=== PATIENT | female | born 1935 | race Caucasian/White ===

== ENCOUNTER → 2019-03-10 | Outpatient (CLI) | payer OTHER ==
[~2019-03-10] VITALS: Ht 162.6 cm; Wt 81.6 kg
[~2019-03-10] MED LIST: ACETAMINOPHEN-1 EAC1 PO; APAP/CODEINE ELI5 M1 OR; CALCIUM 600 +1 EAC2 PO; CALCIUM OYSTER500 MG PO; CLONAZEPAM 0.50.5 M1 PO; FISH OIL 1,0001 EAC5 PO; LIPITOR 20 MG T20 M1 PO; LISINOPRIL10 MG PO; LIVALO4 MG PO; METFORMIN HCL500 MG PO; MINIPRIN81 MG PO; MULTIVITAMINS PO; NAPROSYN500 MG PO; NEURONTIN 300300 M1 PO; NEURONTIN600 MG PO; NEXIUM40 MG PO; NORCO 5-325 TA1 EAC1 PO; NORVASC 5 MG TAB5 MG PO; PANTOPRAZOLE SO40 M1 PO; PRAVACHOL 20 MG20 M1 PO; PRINIVIL10 MG PO; PROTONIX40 M1 PO; VYTORIN 10-101 EACH PO; ZPAK PO
[2019-03-10 10:26] VITALS: BP 157/77
--- NOTE | 2019-03-10 10:48 | NUR ---
Pain Clinic Assessment: 1. History of Osteoarthritis: * THROUGHOUT SPINE History of Rheumatoid Arthritis: 2. Height: 5 ft. 4 in. 162.6 cm. Weight: 180.0 lb. oz. 81.648 kg. Patient's BMI: 30.9 3. Vital Signs: BP: 157/77 Pulse: 74 Resp: 16 Temp: 02 Sat: 97 ECG Mon: 4. Pain Intensity: 5 5. Fall Risk: Dizziness: Y Needs help standing or walking: N Fallen in the last 3 months: N Fall risk comments: 6. Patient on Blood Thinner: None 7. History of Hypertension: 8. Opioid Therapy greater than 6 weeks: N Opiate Contract Signed: 9. Risk Assessment Tool Provided: 10. Functional Assessment Tool: 11. Recreational Drug Use: Never Drug Type: Tobacco Use: Never Smoker Tobacco Type: Amount or Packs/day: How Many Years: Alcohol Use: No Frequency: Quant:
--- NOTE | 2019-03-24 07:47 | HPC ---
[facility] [address] PAIN MANAGEMENT CONSULTATION Name: CELESTINA NOYOLA [facility] [id number] Admission: 03/10/19 Attend Phys: Omer Harris DO Discharge: Date of : 33 Report #: [id number] THIS REPORT FOR: //name// CC: Jewel Watson DATE OF SERVICE: 03/10/2019 REFERRING PHYSICIAN: Prince Montes DO CHIEF COMPLAINT: Neck pain, midback pain and low back pain. HISTORY OF PRESENT ILLNESS: As you know, the patient is an 84-year-old female with longstanding history of various pain generators, including her neck, midback and low back. She states the pain began somewhere in 09/2018. She is unaware of any specific injury or trauma that may have worsened her symptoms. She indicates that her pain has intensified to a level that she contacted her PCP, Dr. Montes, who had her undergo imaging of the cervical spine, which showed marked central canal stenosis with complete effacement of CSF at the C5-C6 level. Due to lack of improvement with conservative options and given the significant findings on imaging, the patient was sent to our clinic to discuss the possibility of treatment for suspected cervical radiculopathy. The patient indicates pain today is continuous with transient exacerbation of symptoms. She describes the pain as shooting, throbbing, tender, numbness and tingling when describing pain, places current pain score 5/10, daily average at 5-7/10, worst pain has been at 8/10. The patient states that pain is exacerbated with "too much walking or too long sitting." She states nothing to date has improved overall pain. She has been referred to our service for her cervical spinal stenosis to discuss options for treatment. PAST MEDICAL HISTORY: 1. Hypertension. 2. Gastroesophageal reflux disease. 3. Osteoporosis. 4. Diabetes mellitus type 2. 5. Cervical radiculopathy. 6. Dyslipidemia. PAST SURGICAL HISTORY: Hysterectomy. SOCIAL HISTORY: The patient denies tobacco, alcohol, IV or illicit drug use. She is retired, retiring nearly 35 years ago, not receiving workmen's compensation, nor is she trying to obtain disability benefits. She is not in [address] [address] PAIN MANAGEMENT CONSULTATION Name: CELESTINA NOYOLA [facility] #: [facility] [id number] Admission: 03/10/19 Attend Phys: Omer Harris DO Discharge: Date of : 33 Report #: [id number] litigation in regards to pain. ALLERGIES: NIACIN AND TRAMADOL. CURRENT MEDICATIONS: Calcium carbonate 1 tablet per day, multivitamin 1 tab per day, metformin 500 mg twice a day, atorvastatin 20 mg once a day, amlodipine 5 mg per day, omeprazole 40 mg per day. Pain impact score 10/60 indicating mild interference of daily activities secondary to pain. IMAGING: MRI cervical spine obtained on 02/20/2019 shows C1-C2 unremarkable; C2-C3 unremarkable; C3-C4, mild osteophyte disk bulge and facet arthropathy pain. There is ligamentum flavum hypertrophy causing effacement of the ventral thecal sac, mild central canal stenosis, left greater than right foraminal narrowing. C4-C5, broad-based disk bulge, osteophyte complex, bilateral facet hypertrophy, ligamentum flavum hypertrophy causing CSF effacement, cord flattening, moderate central canal stenosis. C5-C6, disk osteophyte complex with a central protrusion, facet hypertrophy, ligamentum flavum hypertrophy causing marked central canal stenosis with complete CSF effacement, spinal cord compression and bilateral foraminal narrowing. C6-C7 and C7-T1, relatively unremarkable. PQRS: The patient has known arthritic changes of the cervical spine, with a history of rheumatoid arthritis. She is placing pain intensity at 5/10. She is not a fall risk, has not had a fall in the last 3 months. She is not on blood thinners. She is currently treated for hypertension. She is not on any opioid. She has a low opioid addiction potential. Pain impact score 10 of 60, mild interference with daily activities secondary to pain. PHYSICAL EXAMINATION: VITAL SIGNS: Blood pressure 157/77, pulse 74, respiratory rate 16 and unlabored. The patient is 97% on room air. Height 5 feet 4 inches tall, weight 180 pounds, BMI calculated 30.9. GENERAL: Well-developed, well-nourished, well-hydrated 84-year-old female, appearing stated age, rating pain score today 5/10. HEENT: Normocephalic, atraumatic. Pupils equal, round, reactive to light. Extraocular muscles are intact. Sclerae nonicteric without injection. NEUROLOGIC: Cranial nerves 2 through 12 grossly intact. Speech fluent. The patient deemed a good historian. LUNGS: Clear, no wheeze, rhonchi or rales. CARDIOVASCULAR: Regular. No appreciable gallop, no rub. ABDOMEN: Soft, nontender, mildly obese, normoactive bowel sounds. EXTREMITIES: Show no clubbing, no cyanosis, no edema. MUSCULOSKELETAL: The patient has an upper extremity strength equal and symmetrical, deconditioned bilaterally, but able to generate 5/5 strength. She is intact to light touch from C5-T1 dermatomes. Deep tendon reflexes are symmetrical, but diminished bilaterally, both in the triceps, biceps and [facility] [address] [place] [address] PAIN MANAGEMENT CONSULTATION Name: CELESTINA NOYOLA [facility]: [facility] [id number] Admission: 03/10/19 Attend Phys: Omer Harris DO Discharge: Date of : 33 Report #: [id number] brachioradialis in the left and right upper extremities. Spurling's test is positive. Distraction of the cervical spine does improve pain mildly. Cervical provocation testing is met with [id number] restriction of motion and pain generated both in the left and right rotational component. ASSESSMENT: 1. Cervical radiculopathy. 2. Severe central canal stenosis of the cervical spine. 3. Neuroforaminal stenosis of the cervical spine. 4. Cervical facet arthropathy. 5. Chronic intractable pain. PLAN: 1. Based on today's physical exam and history the patient has provided, the description the patient uses in regards to pain as well as the descriptors the patient uses in regards to symptoms and the findings of her recent MRI, which shows severe near-critical spinal stenosis at the C5-C6 level, likely source of the patient's pain is cervical radiculopathy. We discussed with the patient treatment options for cervical radiculopathy today. The following was discussed with the patient. We discussed physical therapy, stretching exercises and traction techniques to assist in cervical pain. We discussed medication management utilizing neuropathic pain medications, nonsteroidal anti-inflammatories and a low-dose opioid for pain control. We discussed cervical epidural injections under fluoroscopic guidance to address radicular components directly. We also discussed surgical decompression, which may ultimately be necessary. After reviewing the risks and benefits of all the proposed treatment options, the patient chose to begin with conservative medication management. We reviewed the fact that opiate medications are being used to provide analgesia adequate to support activities of daily living, not attempting to achieve a specific pain score on the 0-10 Visual Analog Scale. The current opiate medications are providing sufficient analgesia to allow the patient to participate in activities of daily living. The patient is not exhibiting any aberrant behavior suggestive of drug diversion. The patient is not having any adverse reactions to medications. The patient is not suffering from daytime somnolence or mental acuity changes. The patient is managing opiate-induced constipation with appropriate iyth-kik-[id number] agents and dietary considerations. The patient was counseled on concern for caution with operating a motor vehicle while using opiate medications. A physical exam was performed and the patient's functional status was evaluated. All patients with back pain were advised against the bed rest greater than 4 days and were advised to return to normal activities. Pain score assessment was noted and the treatment plan was reviewed with the patient. All current [address] [address] PAIN MANAGEMENT CONSULTATION Name: CELESTINA NOYOLA Room #: REG [facility]#: [id number] Admission: 03/10/19 Attend Phys: Omer Harris DO Discharge: Date of : 33 Report #: [id number] medications, both prescribed and OTC were reviewed and reconciled on the electronic medical record. Tobacco screening was accomplished and smoking cessation was advised when indicated. BMI was noted and diet/exercise modification was recommended for all patients following outside normal parameters. I reviewed with the patient today their responsibilities to safeguard prescription medications, reviewed their responsibility to utilize medications only as prescribed by the physician. They are to seek and receive pain medications only from 1 physician group ( [facility]). They are to use 1 pharmacy and keep the clinic informed if they change pharmacies. Their responsibilities include making followup visits in a timely fashion and to avoid abrupt discontinuation of medication usage. Their responsibilities further include bringing their medications (bottles from the pharmacy with residual pills) to the visit for possible confirmation of pill counts and the patient understands it is their responsibility to submit to random drug screens to ensure both that the medications prescribed are present, and that no other controlled substances are present. All prescriptions provided today were generated electronically. 2. The patient will be started on Holly 5/325 one tablet p.o. q.6 hours p.r.n. for pain. I gave the patient #60 tablets. I have advised the patient to take the medication only when pain is intolerable. She is not to rely on this medication prophylactically. She will take the medication when her pain is present. She again is not to take this medication unless pain is not controlled by other medications. 3. The patient was started on gabapentin initiating at a 300 mg dose at night for 5 nights, then increasing to 2 tablets p.o. at bedtime for 5 nights, then 1 tablet in the morning, 2 tablets at night for 5 days, then 2 tablets in the morning, 2 tablets at night for 5 days, then 2 tablets in the morning, 1 tablet at noon and 2 tablets at night for 5 days and ultimately 2 tablets t.i.d. I have given the patient #180 tablets. I have advised the patient on how to titrate the medication. We did give the titration to the patient in written form to be able to follow. The patient was advised if she begins to experience improvement in symptoms at any time during the titration stabilize at that dose without further escalation. No improvement in symptoms, no side effects, continue the titration as directed. If the patient notes side effects of sleepiness, disorientation, confusion, mental slowing with use of medication, reduce to the dose prior, continue the medication, contacting our clinic. 4. The patient will be started on naproxen 500-mg dose 1 tablet p.o. t.i.d. I have given the patient #90, no refills. The patient was advised to watch for dyspepsia, worsening of blood pressure, or lower extremity edema with its use. This anti-inflammatory medication is being added to reduce any inflammatory component. 5. We will see the patient back in followup visit for possible cervical epidural injection. The patient wishes a trial of conservative treatment initially. If this is ineffective, then return to discuss possible cervical [address] [address] PAIN MANAGEMENT CONSULTATION Name: CELESTINA NOYOLA Room #: REG [facility]#: [id number] Admission: 03/10/19 Attend Phys: Omer Harris DO Discharge: Date of : 33 Report #: [id number] epidural injection and to discuss possible surgical referral. 6. We wish to thank Dr. Montes for the referral of this patient to our clinic. We will keep you apprised of response to treatment as we address cervical radiculopathy secondary to severe near-critical central canal stenosis noted on the MRI at the C5-C6 level. Again, we wish to thank you for the opportunity to see the patient in consultation. <ELECTRONICALLY SIGNED> By: Omer Harris DO 03/24/19 [id number] [id number] Omer Harris DO /kenney
== END ==
LOC: PAIN 06:54
DX: M54.12 Radiculopathy, cervical region (principal); M48.02 Spinal stenosis, cervical region; I10 Essential (primary) hypertension; K21.9 Gastro-esophageal reflux disease without esophagitis; M81.0 Age-related osteoporosis without current pathological fracture; E11.9 Type 2 diabetes mellitus without complications; E78.5 Hyperlipidemia, unspecified; G89.4 Chronic pain syndrome; Z88.8 Allergy status to other drugs, medicaments and biological substances; Z79.899 Other long term (current) drug therapy

== ENCOUNTER → 2019-04-07 | Outpatient (CLI) | payer OTHER ==
[~2019-04-07] VITALS: Ht 162.6 cm; Wt 82.7 kg
[2019-04-07 09:17] VITALS: BP 145/77
--- NOTE | 2019-04-07 09:30 | NUR ---
Pain Clinic Assessment: 1. History of Osteoarthritis: THROUGHOUT SPINE History of Rheumatoid Arthritis: DENIES 2. Height: 5 ft. 4 in. 162.6 cm. Weight: 182.4 lb. oz. 82.736 kg. Patient's BMI: 31.3 3. Vital Signs: BP: 145/77 Pulse: 74 Resp: 20 Temp: 02 Sat: 94 ECG Mon: 4. Pain Intensity: 3 5. Fall Risk: Dizziness: Y Needs help standing or walking: N Fallen in the last 3 months: N Fall risk comments: 6. Patient on Blood Thinner: None 7. History of Hypertension: Y 8. Opioid Therapy greater than 6 weeks: N Opiate Contract Signed: 9. Risk Assessment Tool Provided: 10. Functional Assessment Tool: 11. Recreational Drug Use: Never Drug Type: Tobacco Use: Never Smoker Tobacco Type: Amount or Packs/day: How Many Years: Alcohol Use: No Frequency: Quant:
--- NOTE | 2019-04-21 12:47 | HPC ---
[facility] [place] [address] PAIN MANAGEMENT CONSULTATION Name: CELESTINA NOYOLA Room #: REG [facility] Jomar#: [id number] Admission: 04/07/19 Attend Phys: Omer Harris DO Discharge: Date of : 33 Report #: [id number] THIS REPORT FOR: //name// CC: Jewel Watson DATE OF SERVICE: 04/07/2019 CHIEF COMPLAINT: Neck pain, midback pain, low back pain. HISTORY OF PRESENT ILLNESS: As you know, the patient is an 84-year-old female with longstanding history of various pain generators including her neck, midback and low back. She was seen in consultation per the request of Dr. Montes on 03/10/2019. We gave the patient multiple options for treatment. She chose to begin with medication management. She returns today to make adjustments further in her medications. She has not started the majority of her medications as she is fearful of initiating the therapy. She wants to discuss this again today. She has not discussed this with her primary care physician or any other physician to date. She has only initiated gabapentin where she is taking 600 mg 3 times a day, but has not noted improvement. She returns for adjustments in therapy. ALLERGIES: NIACIN, TRAMADOL. CURRENT MEDICATIONS: Calcium carbonate, multivitamin, metformin, atorvastatin, amlodipine, omeprazole, lisinopril, and gabapentin. SOCIAL HISTORY: The patient denies tobacco, alcohol or IV illicit drug use. She is retired, retired nearly 35 years ago, accompanied by her present in room today. IMAGING: No new imaging available. PQRS: The patient has known arthritic changes of the cervical spine, lumbar spine, but no rheumatoid arthritis. She is placing current pain score at 3/10. She is not a fall risk, has not had a fall in last 3 months. She is not on blood thinners, but is treated for hypertension. She is not on chronic opioids and has a low opioid addiction potential. Pain impact score is 44/70 indicating moderate interference of daily activities secondary to pain. PHYSICAL EXAMINATION: VITAL SIGNS: Blood pressure 145/77, pulse 74, respiratory rate 20 and unlabored. The patient is 94% on room air. Height 5 feet 4 inches tall, weight 182.4 pounds, BMI calculated 31.3[place] [address] PAIN MANAGEMENT CONSULTATION Name: CELESTINA NOYOLA Room #: REG [facility] Jomar#: [id number] Admission: 04/07/19 Attend Phys: Omer Harris DO Discharge: Date of : 33 Report #: [id number] GENERAL: Well-developed, well-nourished, well-hydrated exogenously obese 84-year-old female appearing stated age, pain is rated around 3/10. HEENT: Normocephalic, atraumatic. Pupils equal, round, reactive to light. EXTREMITIES: Show no clubbing, no cyanosis, and no edema. MUSCULOSKELETAL: Palpatory tenderness is noted over the paraspinal musculature of cervical spine, thoracic spine, lumbar spine. Deep tendon reflexes are diminished in the upper extremities, but symmetrical. Spurlings test is positive. Distraction of the cervical spine causes improvement in overall pain. There is no dermatomal distribution of pain in the thoracic spine all myofascial findings. The lumbar spine shows facet arthropathy pain with provocation testing. ASSESSMENT: 1. Cervical radiculopathy. 2. Severe central canal stenosis of the cervical spine. 3. Neural foraminal stenosis of the cervical spine. 4. Facet arthropathy of cervical spine. 5. Myofascial pain in thoracic area. 6. Lumbosacral spondylosis without radiculopathy. PLAN: 1. The patient returns today in followup visit indicating that she has started the gabapentin. She is now at 600 mg 3 times a day, but has noted no side effects and no improvement. We recommend continuing the titration of this medication, adding 300 mg every 3 days to a goal of 900 mg 3 times a day. I have given the patient a written form of titration, so that she can follow and increase her medications. If she reaches efficacy, then remaining at that dose, improvement in pain is what we are attempting to achieve. If she has side effects, reduce the dose prior and contact our clinic. Prescription was provided to the patient today for gabapentin 600s and gabapentin 300s to make the titration effective. 2. The patient indicates that she has taken only 6 of the hydrocodone that was provided at last visit. We recommend that she take a half tab as necessary for pain control. She appears to be tolerating the medication well and did note analgesic benefit. I did not add any further prescriptions of this medication at this time. 3. The patient was advised to initiate naproxen therapy 500 mg dose t.i.d. She had concerns about taking this medication with lisinopril. We discussed this with the patient today. I believe a short dosing of anti-inflammatory will be quite beneficial for the patient. She will consider her options and take the medication as she discussed this with her PCP. [facility] [address] [place] [address] PAIN MANAGEMENT CONSULTATION Name: CELESTINA NOYOLA Room #: REG [facility]#: [id number] Admission: 04/07/19 Attend Phys: Omer Harris DO Discharge: Date of : 33 Report #: [id number] 4. We will see the patient back in followup visit on an as needed basis. We are hopeful the adjustments in medication will provide good benefit. <ELECTRONICALLY SIGNED> By: Omer Harris DO 04/21/19 [id number] Omer Harris DO /nt
== END ==
LOC: PAIN 06:48
DX: M54.12 Radiculopathy, cervical region (principal); M48.02 Spinal stenosis, cervical region; M12.88 Other specific arthropathies, not elsewhere classified, other specified site; M79.18 Myalgia, other site; M47.817 Spondylosis without myelopathy or radiculopathy, lumbosacral region; Z88.8 Allergy status to other drugs, medicaments and biological substances; Z79.899 Other long term (current) drug therapy